=== PATIENT | female | born 1990 | race Caucasian/White ===

== ENCOUNTER 2017-02-10 20:27 | Emergency (ER) | payer MEDICAID ==
[2017-02-10 20:27] VITALS: BMI 17.6
[2017-02-10 20:50] VITALS: BP 97/63; PULSE 103; RESP 18; TEMP 98.6; O2SAT 100
--- NOTE | 2017-02-10 23:38 | ED PDOC ---
HPI: Abdomen Time Seen by Provider: 02/10/17 22:13 Chief Complaint (Nursing): Abdominal Pain Chief Complaint (Provider): Abdominal Pain History Per: Patient History/Exam Limitations: no limitations Onset/Duration Of Symptoms: Days (x2) Outside of [place] travel?: No Current Symptoms Are (Timing): Still Present Location Of Pain/Discomfort: LLQ (/left flank), Suprapubic Associated Symptoms: Nausea, Vomiting. denies: Fever, Urinary Symptoms Additional Complaint(s): 26 year old female presents to ED with complaints of left flank/suprapubic pain x2 days and has a past medical history of asthma and bipolar disorder. (-) fever or urinary symptoms. (+) vomiting, nausea, and headache. Denied ever experiencing these symptoms previously. Denies taking any medication for pain. PCP: [facility] Abnormal Vaginal Bleeding: No Last Menstral Period: last month Past Medical History Reviewed: Historical Data, Nursing Documentation, Vital Signs Vital Signs: Last Vital Signs Temp 98.6 F 02/10/17 20:45 Pulse 103 H 02/10/17 20:45 Resp 18 02/10/17 20:45 BP 97/63 L 02/10/17 20:45 Pulse Ox 100 02/11/17 02:08 - Medical History PMH: Anxiety, Asthma, Bipolar Disorder, Depression, Fibromyalgia, Schizophrenia , Sleep Apnea Denies: Bronchitis, COPD, Emphysema, Paranoia, Personality Disorder, Pneumonia, Pneumothorax, Depression, Post Traumatic Stress Disorder, Pulmonary Embolism - Surgical History Surgical History: - Family History Family History: States: Unknown Family Hx - Social History Current smoker - smoking cessation education provided: Yes (3 cigarettes a day) - Immunization History Hx Tetanus Toxoid Vaccination: No Hx Influenza Vaccination: No Hx Pneumococcal Vaccination: No - Home Medications Home Medications: Ambulatory Orders Medication Instructions Recorded No Known Home Med 12/05/16 - Allergies Allergies/Adverse Reactions: Allergies Allergy/AdvReac Type Severity Reaction Status Date / Time lamotrigine [From Lamictal] Allergy RASH Verified 02/10/17 20:50 Review of Systems ROS Statement: Except As Marked, All Systems Reviewed And Found Negative Constitutional: Negative for: Fever Gastrointestinal: Positive for: Nausea, Vomiting, Abdominal Pain (Left suprapubic pain) Genitourinary Female: Negative for: Dysuria, Frequency, Incontinence, Hematuria Neurological: Positive for: Headache Physical Exam - Reviewed Nursing Documentation Reviewed: Yes Vital Signs Reviewed: Yes - Physical Exam Appears: Positive for: Non-toxic, No Acute Distress Skin: Positive for: Normal Color, Warm, Dry Eye Exam: Positive for: Normal appearance, EOMI, PERRL Neck: Positive for: Normal, Painless ROM, Supple Cardiovascular/Chest: Negative for: Murmur Respiratory: Negative for: Respiratory Distress Gastrointestinal/Abdominal: Positive for: Soft, Tenderness (left suprapubic/ flank tenderness). Negative for: Mass, Distended, Guarding, Rebound Extremity: Positive for: Normal ROM. Negative for: Deformity Neurologic/Psych: Positive for: Alert, Oriented - Laboratory Results Result Diagrams: 02/10/17 00:37 02/10/17 00:37 - ECG O2 Sat by Pulse Oximetry: 100 (RA) Pulse Ox Interpretation: Normal Medical Decision Making Medical Decision Makin Initial impression: r/o stones, r/o pyelo Initial plan: * Labs * Urine C&s * UA * CT A/P 0028 CT FINDINGS Lower thorax: The bilateral lung bases are clear. ABDOMEN: Liver: The liver is enlarged, and demonstrates fatty infiltration. Gallbladder and bile ducts: No acute finding. No calcified stones. No intra- extrahepatic biliary ductal dilation. Pancreas: Limited evaluation secondary to the lack of intravenous contrast. Spleen: No acute findings. Adrenals: No acute findings. Kidneys and ureters: No obstructing intrarenal stones. No hydronephrosis. The course of the bilateral ureters are obscured by adjacent unopacified bowel loops. PELVIS: Bladder: Bladder wall thickening, possibly due to underdistention. Reproductive: Limited visualization Appendix: The appendix is not definitively visualized, however no pericecal inflammatory changes present to suggest the presence of acute appendicitis. ABDOMEN and PELVIS: Stomach and bowel: A dense umbilical hernia is identified, possibly representing herniated omentum. The bowel loops are normally distended with air, without evidence of obstruction. Peritoneum: Limited evaluation secondary to the lack of intra-abdominal fat. Lymph nodes: Limited evaluation without intravenous contrast. Vasculature: No aortic aneurysm. Bones: No acute fracture. IMPRESSION: Limited evaluation of the abdomen and pelvis, secondary to the lack of intra- abdominal fat and intravenous contrast. No hydronephrosis or intrarenal calculi. Evaluation of the course of the bilateral ureters is limited. Dense umbilical hernia, possibly herniated omentum. Thickening of the bladder wall. Fatty infiltration of an enlarged liver. 0046 Urine negative for infection. 0207 LFTs elevated Potassium borderline Pt tolerated PO Will give potassium in ED. Follow up as outpatient to [facility] for abdominal pain and elevated LFTs. pt instructed to follow up as outpt for hernia Upon re-evaluation, patient is feeling much better and is stable for discharge. Patient is medically stable and ready for discharge. Counseling has been provided and patient is in agreement. Return if symptoms persist or acutely worsen. Scribe Attestation: Documented by Martine Singh acting as a scribe for Cynthia Nichols. MD Moraes Attestation: All medical record entries made by the Scribe were at my direction and personally dictated by me. I have reviewed the chart and agree that the record accurately reflects my personal performance of the history, physical exam, medical decision making, and the department course for this patient. I have also personally directed, reviewed, and agree with the discharge instructions and disposition. Disposition - Clinical Impression Clinical Impression: Abdominal pain, Elevated LFTs - Patient ED Disposition Is Patient to be Admitted: No Counseled Patient/Family Regarding: Studies Performed, Diagnosis, Need For Followup - Disposition Referrals: [facility] [Outside] [facility] [Outside] Disposition Time: 13:00 Condition: IMPROVED Additional Instructions: follow up with your primary doctor in 2 days return to the ED with any worsening or concerning symptoms Instructions: Acute Abdominal Pain (ED)
--- NOTE | 2017-02-11 00:28 | CT ---
EXAM: CT Abdomen and Pelvis Without Intravenous Contrast CLINICAL HISTORY: 26 years old, female; Pain; Abdominal pain; Localized; Left; Prior surgery; Surgery date: 6+ months; Surgery type: ; Additional info: Left flank pain TECHNIQUE: Axial computed tomography images of the abdomen and pelvis without intravenous contrast. This CT exam was performed using one or more of the following dose reduction techniques: automated exposure control, adjustment of the mA and/or kV according to patient size, and/or use of iterative reconstruction technique. Coronal reformatted images were created and reviewed. Examination is markedly limited by the lack of intra-abdominal fat and, in the lack of intravenous contrast. COMPARISON: No relevant prior studies available. FINDINGS: Lower thorax: The bilateral lung bases are clear. ABDOMEN: Liver: The liver is enlarged, and demonstrates fatty infiltration. Gallbladder and bile ducts: No acute finding. No calcified stones. No intra-extrahepatic biliary ductal dilation. Pancreas: Limited evaluation secondary to the lack of intravenous contrast. Spleen: No acute findings. Adrenals: No acute findings. Kidneys and ureters: No obstructing intrarenal stones. No hydronephrosis. The course of the bilateral ureters are obscured by adjacent unopacified bowel loops. PELVIS: Bladder: Bladder wall thickening, possibly due to underdistention. Reproductive: Limited visualization Appendix: The appendix is not definitively visualized, however no pericecal inflammatory changes present to suggest the presence of acute appendicitis. ABDOMEN and PELVIS: Stomach and bowel: A dense umbilical hernia is identified, possibly representing herniated omentum. The bowel loops are normally distended with air, without evidence of obstruction. Peritoneum: Limited evaluation secondary to the lack of intra-abdominal fat. Lymph nodes: Limited evaluation without intravenous contrast. Vasculature: No aortic aneurysm. Bones: No acute fracture. IMPRESSION: Limited evaluation of the abdomen and pelvis, secondary to the lack of intra-abdominal fat and intravenous contrast. No hydronephrosis or intrarenal calculi. Evaluation of the course of the bilateral ureters is limited. Dense umbilical hernia, possibly herniated omentum. Thickening of the bladder wall. Fatty infiltration of an enlarged liver.
[2017-02-11 00:41] LABS: BASO % 0.4 % (0.0-2.0); EOS # 0.1 K/uL (0.0-0.7); EOS % 1.9 % (0.0-4.0); HEMATOCRIT 38.1 % (34.0-47.0); LYMPH # 2.9 K/uL (1.0-4.3); LYMPH % 41.5 % (20.0-40.0); MEAN CORPUSCULAR HEMOGLOBIN 27.8 pg (27.0-31.0); MEAN CORPUSCULAR HGB CONC 32.7 g/dL (33.0-37.0); MEAN PLATELET VOLUME 9.1 fl (7.2-11.7); MONO # 0.7 K/uL (0.0-0.8); MONO % 9.9 % (0.0-10.0); NEUT # 3.2 K/uL (1.8-7.0); NEUT % 46.3 % (50.0-75.0); RED CELL DISTRIBUTION WIDTH 13.1 % (11.5-14.5); WHITE BLOOD COUNT 6.9 K/uL (4.8-10.8)
[2017-02-11 00:48] LABS: RBC URINE 1 /hpf (0-3); URINE BACTERIA RARE (<OCC); URINE BILIRUBIN NEGATIVE (NEGATIVE); URINE BLOOD NEGATIVE (NEGATIVE); URINE COLOR YELLOW (YELLOW); URINE GLUCOSE (UA) NEG (Normal); URINE KETONE NEGATIVE (NEGATIVE); URINE LEUKOCYTE ESTERASE NEG Leu/uL (Negative); URINE PROTEIN NEGATIVE (NEGATIVE); WBC URINE 1 /hpf (0-5)
[2017-02-11 00:50] LABS: ALB/GLOB RATIO 1.2 (1.0-2.1); ALKALINE PHOSPHATASE 118 U/L (38-126); ALT/SGPT 113 U/L (9-52); AST/SGOT 76 U/L (14-36); BILIRUBIN,TOTAL 0.3 mg/dl (0.2-1.3); BLOOD UREA NITROGEN 9 mg/dl (7-17); CALCIUM 9.2 mg/dL (8.4-10.2); CARBON DIOXIDE 26 mmol/L (22-30); CHLORIDE 100 mmol/L (98-107); GFR AFRICAN-AMERICAN > 60; GLUCOSE,RANDOM 80 mg/dL (65-105); POTASSIUM 3.5 MMOL/L (3.6-5.0); SODIUM 136 mmol/l (132-148)
[2017-02-11] MEDS ORDERED: Potassium Chloride 20 mEq ER Tab PO ONE ×2 (02:05→02:15)
== END 2017-02-11 02:16 | disposition home or self-care (01) ==
LOC: H.ER 20:27
DX: R10.9 Unspecified abdominal pain (principal); R79.89 Other specified abnormal findings of blood chemistry

== ENCOUNTER 2017-09-08 23:23 | Emergency (ER) | payer MEDICAID ==
[2017-09-08 23:23] VITALS: BMI 17.6
[2017-09-08 23:35] VITALS: BP 119/79; PULSE 107; RESP 16; TEMP 98.6; O2SAT 99
--- NOTE | 2017-09-09 00:16 | ED PDOC ---
HPI: Abdomen Time Seen by Provider: 09/08/17 23:32 Chief Complaint (Nursing): Abdominal Pain Chief Complaint (Provider): abdominal pain History Per: Patient History/Exam Limitations: no limitations Onset/Duration Of Symptoms: Days (1 week), Waxing/Waning Location Of Pain/Discomfort: RLQ, LLQ, Suprapubic Quality Of Discomfort: "Pain" Additional History Per: Patient Additional Complaint(s): 27 y/o female presents with intermittent diffuse lower abdominal pain x 1 week. Associated nausea, dizziness. Denies fever, vomiting, chest pain, shortness of breath, palpitations, changes in bowel movements, urinary symptoms, vaginal bleeding/discharge. Patient states she got her period twice last month, which is unusual for her as they are usually regular. Last Menstral Period: 08/15/17 Past Medical History Reviewed: Historical Data, Nursing Documentation, Vital Signs Vital Signs: Last Vital Signs Temp 98.6 F 09/08/17 23:27 Pulse 107 H 09/08/17 23:27 Resp 16 09/08/17 23:27 BP 119/79 09/08/17 23:27 Pulse Ox 99 09/09/17 00:17 - Medical History PMH: Anxiety, Asthma, Bipolar Disorder, Depression, Fibromyalgia, Schizophrenia , Sleep Apnea Denies: Bronchitis, COPD, Emphysema, Paranoia, Personality Disorder, Pneumonia, Pneumothorax, Depression, Post Traumatic Stress Disorder, Pulmonary Embolism - Surgical History Surgical History: - Family History Family History: States: Unknown Family Hx - Immunization History Hx Tetanus Toxoid Vaccination: No Hx Influenza Vaccination: No Hx Pneumococcal Vaccination: No - Home Medications Home Medications: Ambulatory Orders Medication Instructions Recorded Naproxen [Naprosyn] 500 mg PO Q12 PRN #20 tablet 09/09/17 - Allergies Allergies/Adverse Reactions: Allergies Allergy/AdvReac Type Severity Reaction Status Date / Time lamotrigine [From Lamictal] Allergy RASH Verified 02/10/17 20:50 Review of Systems ROS Statement: Except As Marked, All Systems Reviewed And Found Negative Genitourinary Female: Positive for: Pelvic Pain Physical Exam - Reviewed Nursing Documentation Reviewed: Yes Vital Signs Reviewed: Yes - Physical Exam Appears: Positive for: Well, Non-toxic, No Acute Distress Head Exam: Positive for: ATRAUMATIC, NORMAL INSPECTION, NORMOCEPHALIC Skin: Positive for: Normal Color Eye Exam: Positive for: Normal appearance Cardiovascular/Chest: Positive for: Regular Rate, Rhythm Respiratory: Positive for: Normal Breath Sounds Gastrointestinal/Abdominal: Positive for: Tenderness (diffuse lower discomfort to palpation) Back: Positive for: Normal Inspection Extremity: Positive for: Normal ROM Neurologic/Psych: Positive for: Alert, Oriented - ECG O2 Sat by Pulse Oximetry: 99 - Progress ED Course And Treament: labs, u/s, urine EXAM: US Pelvis, Transvaginal CLINICAL HISTORY: 27 years old, female; Pain; Pelvic pain TECHNIQUE: Real-time transvaginal pelvic ultrasound (complete) with image documentation. Transvaginal imaging was used for better evaluation of the endometrium and adnexa. COMPARISON: No relevant prior studies available. FINDINGS: Uterus/cervix: Uterus measures 7.3 x 3.1 x 4.3 cm in size. No myometrial mass. Endometrium: 0.9 cm in thickness. Right ovary: 3.3 x 2.1 x 3.7 cm in size. 1.5 x 1.3 x 1.6 cm heterogeneous but predominantly hyperechoic lesion. Small follicles. Normal flow. Left ovary: 2.3 x 1.1 x 2.3 cm in size. No mass. Small follicles. Normal flow. Free fluid: No significant free fluid. Bladder: Empty bladder which cannot be evaluated with this probe. IMPRESSION: 1. RIGHT ovarian lesion, nonspecific. Suggest MRI or short-term sonographic followup. Patient educated on findings, discharged with rx Naproxen. Advised follow up Meter Mechanic 2-3 days. Return to ED for worsening/concerning symptoms. Disposition - Clinical Impression Clinical Impression: Lesion of ovary, Pelvic pain - Patient ED Disposition Is Patient to be Admitted: No Counseled Patient/Family Regarding: Studies Performed, Diagnosis, Need For Followup, Rx Given - Disposition Disposition: Routine/Home Disposition Time: 01:41 Condition: IMPROVED Instructions: Pelvic Pain in Women (ED), Ovarian Cyst (ED) Forms: [employer] (Lao)
--- NOTE | 2017-09-09 00:48 | US ---
EXAM: US Pelvis, Transvaginal CLINICAL HISTORY: 27 years old, female; Pain; Pelvic pain TECHNIQUE: Real-time transvaginal pelvic ultrasound (complete) with image documentation. Transvaginal imaging was used for better evaluation of the endometrium and adnexa. COMPARISON: No relevant prior studies available. FINDINGS: Uterus/cervix: Uterus measures 7.3 x 3.1 x 4.3 cm in size. No myometrial mass. Endometrium: 0.9 cm in thickness. Right ovary: 3.3 x 2.1 x 3.7 cm in size. 1.5 x 1.3 x 1.6 cm heterogeneous but predominantly hyperechoic lesion. Small follicles. Normal flow. Left ovary: 2.3 x 1.1 x 2.3 cm in size. No mass. Small follicles. Normal flow. Free fluid: No significant free fluid. Bladder: Empty bladder which cannot be evaluated with this probe. IMPRESSION: 1. RIGHT ovarian lesion, nonspecific. Suggest MRI or short-term sonographic followup.
[2017-09-09 01:00] LABS: BASO % 0.5 % (0.0-2.0); EOS # 0.1 K/uL (0.0-0.7); EOS % 1.1 % (0.0-4.0); HEMATOCRIT 38.8 % (34.0-47.0); LYMPH # 2.7 K/uL (1.0-4.3); LYMPH % 36.6 % (20.0-40.0); MEAN CELL VOLUME 88.3 fl (81.0-99.0); MEAN CORPUSCULAR HEMOGLOBIN 28.4 pg (27.0-31.0); MEAN CORPUSCULAR HGB CONC 32.2 g/dL (33.0-37.0); MEAN PLATELET VOLUME 9.2 fl (7.2-11.7); MONO # 0.5 K/uL (0.0-0.8); MONO % 7.4 % (0.0-10.0); NEUT # 3.9 K/uL (1.8-7.0); NEUT % 54.4 % (50.0-75.0); RED CELL DISTRIBUTION WIDTH 13.9 % (11.5-14.5); WHITE BLOOD COUNT 7.2 K/uL (4.8-10.8)
[2017-09-09 01:08] LABS: RBC URINE 2 /hpf (0-3); URINE BILIRUBIN NEGATIVE (NEGATIVE); URINE BLOOD NEGATIVE (NEGATIVE); URINE COLOR YELLOW (YELLOW); URINE GLUCOSE (UA) NEG (Normal); URINE KETONE NEGATIVE (NEGATIVE); URINE LEUKOCYTE ESTERASE NEG Leu/uL (Negative); URINE PROTEIN NEGATIVE (NEGATIVE); WBC URINE 1 /hpf (0-5)
[2017-09-09 01:09] LABS: ALB/GLOB RATIO 1.6 (1.0-2.1); ALKALINE PHOSPHATASE 61 U/L (38-126); ALT/SGPT 38 U/L (9-52); AST/SGOT 22 U/L (14-36); BILIRUBIN,TOTAL 0.2 mg/dl (0.2-1.3); BLOOD UREA NITROGEN 11 mg/dl (7-17); CALCIUM 9.1 mg/dL (8.4-10.2); CARBON DIOXIDE 23 mmol/L (22-30); CHLORIDE 106 mmol/L (98-107); GFR AFRICAN-AMERICAN > 60; GLUCOSE,RANDOM 91 mg/dL (65-105); SODIUM 141 mmol/l (132-148); TOTAL PROTEIN 7.1 G/DL (6.3-8.2)
== END 2017-09-09 02:15 | disposition home or self-care (01) ==
LOC: H.ER 23:23
DX: N83.291 Other ovarian cyst, right side (principal); R10.2 Pelvic and perineal pain; F20.9 Schizophrenia, unspecified; F31.9 Bipolar disorder, unspecified; F41.9 Anxiety disorder, unspecified; J45.909 Unspecified asthma, uncomplicated; M79.7 Fibromyalgia

== ENCOUNTER 2018-03-22 16:33 | Emergency (ER) | payer MEDICAID ==
[2018-03-22 16:33] VITALS: BMI 17.6
[2018-03-22 16:40] VITALS: TEMP 98
[2018-03-22] MEDS ORDERED: Sodium Chloride 0.9% 1,000 ML IV STA (16:57)
--- NOTE | 2018-03-22 16:59 | ED PDOC ---
HPI: Chest Pain Time Seen by Provider: 03/22/18 16:45 Chief Complaint (Nursing): Chest Pain Chief Complaint (Provider): chest pain History Per: Patient History/Exam Limitations: no limitations Onset/Duration Of Symptoms: Days (1 hr rush seater) Current Symptoms Are (Timing): Still Present Additional Complaint(s): Pt. with chest pain sternal constant. More on taking a deep breath. No dyspnea , nausea, vomit, diarrhea, weakness, headaches, dizziness, vision changes, neck pain. Cough, mild. No back pain. Is preg 38 wks. No leg pain. No long distance travel. Has had a pneumothorax on the right last year. Past Medical History Reviewed: Nursing Documentation, Vital Signs Vital Signs: Last Vital Signs Temp 98.0 F 03/22/18 16:35 Pulse 83 03/22/18 17:39 Resp 20 03/22/18 17:39 BP 121/66 03/22/18 17:39 Pulse Ox 97 03/22/18 17:22 - Medical History PMH: Anxiety, Asthma, Bipolar Disorder, Depression, Fibromyalgia, Schizophrenia , Sleep Apnea Denies: Bronchitis, COPD, Emphysema, Paranoia, Personality Disorder, Pneumonia, Pneumothorax, Depression, Post Traumatic Stress Disorder, Pulmonary Embolism Other PMH: pneumothorax - Surgical History Surgical History: - Family History Family History: States: Unknown Family Hx - Living Arrangements Living Arrangements: With Family - Social History Alcohol: None Drugs: Denies - Immunization History Hx Tetanus Toxoid Vaccination: No Hx Influenza Vaccination: No Hx Pneumococcal Vaccination: No - Home Medications Home Medications: Ambulatory Orders Medication Instructions Recorded Naproxen [Naprosyn] 500 mg PO Q12 PRN #20 tablet 09/09/17 - Allergies Allergies/Adverse Reactions: Allergies Allergy/AdvReac Type Severity Reaction Status Date / Time lamotrigine [From Lamictal] Allergy RASH Verified 02/10/17 20:50 CHRISTOPHER Risk Score for UA/NSTEMI - CHRISTOPHER Risk Score Age > 64: NO 3 or more CAD Risk Factors: NO Known CAD (Stenosis greater than 50%): NO Aspirin use in past 7 days: NO Severe Angina: NO EKG ST changes greater than 0.5mm: NO Positive Cardiac Marker: NO CHRISTOPHER Score: 0 Risk %: 5% Review of Systems ROS Statement: Except As Marked, All Systems Reviewed And Found Negative Cardiovascular: Positive for: Chest Pain Respiratory: Positive for: Cough, Pleuritic Pain Physical Exam - Reviewed Nursing Documentation Reviewed: Yes Vital Signs Reviewed: Yes - Physical Exam Appears: Positive for: Non-toxic, No Acute Distress Head Exam: Positive for: ATRAUMATIC, NORMAL INSPECTION, NORMOCEPHALIC Skin: Positive for: Normal Color, Warm, DRY Eye Exam: Positive for: EOMI, Normal appearance, PERRL ENT: Positive for: Normal ENT Inspection Neck: Positive for: Normal, Painless ROM Cardiovascular/Chest: Positive for: Regular Rate, Rhythm, Chest Non Tender. Negative for: Edema Respiratory: Positive for: CNT, Normal Breath Sounds Gastrointestinal/Abdominal: Positive for: Normal Exam, Distended (gravid). Negative for: Tenderness Back: Positive for: Normal Inspection. Negative for: L CVA Tenderness, R CVA Tenderness Extremity: Positive for: Normal ROM. Negative for: Tenderness, Pedal Edema Neurologic/Psych: Positive for: Alert, information security specialist II-XII, Oriented. Negative for: Motor/Sensory Deficits - Laboratory Results Result Diagrams: 03/22/18 17:50 03/22/18 17:50 Interpretation Of Abn Labs: no acute - ECG ECG: Positive for: Interpreted By Me, Viewed By Me ECG Rhythm: Positive for: Normal QRS, Normal ST Segment, Sinus Rhythm O2 Sat by Pulse Oximetry: 97 Pulse Ox Interpretation: Normal - Progress ED Course And Treament: 1721: Stable. Pt. aware of risk of radiation to the fetus and cancer in the future. Pt. agrees to ct to evaluate for PE. AAOx3. 1944: Stable. AAOx3. Pain free. Spoke obgyn. Will see pt. in OB ED from here. Disposition - Clinical Impression Clinical Impression: Chest pain - Patient ED Disposition Is Patient to be Admitted: No Counseled Patient/Family Regarding: Studies Performed, Diagnosis, Need For Followup - Disposition Referrals: Little Farias MD [Primary Care Provider] - 03/23/18 Disposition: Other Institution (OB ED) Disposition Time: 19:45 Condition: STABLE Additional Instructions: Return if not better in 3 days. Instructions: Chest Pain Forms: [employer] (Indonesian)
--- NOTE | 2018-03-22 17:32 | RAD ---
HISTORY: Chest pain. COMPARISON: No prior. FINDINGS: LUNGS: No active pulmonary disease. PLEURA: No significant pleural effusion identified, no pneumothorax apparent. CARDIOVASCULAR: Normal. OSSEOUS STRUCTURES: No significant abnormalities. VISUALIZED UPPER ABDOMEN: Normal. OTHER FINDINGS: None. IMPRESSION: No active disease.
[2018-03-22 17:40] VITALS: RESP 20
[2018-03-22 17:55] LABS: BASO % 0.4 % (0.0-2.0); EOS # 0.6 K/uL (0.0-0.7); EOS % 5.6 % (0.0-4.0); HEMOGLOBIN 11.1 g/dL (12.0-16.0); LYMPH # 1.5 K/uL (1.0-4.3); MEAN CELL VOLUME 88.5 fl (81.0-99.0); MEAN CORPUSCULAR HEMOGLOBIN 29.4 pg (27.0-31.0); MEAN CORPUSCULAR HGB CONC 33.3 g/dL (33.0-37.0); MONO # 0.9 K/uL (0.0-0.8); MONO % 7.9 % (0.0-10.0); NEUT # 7.9 K/uL (1.8-7.0); NEUT % 72.1 % (50.0-75.0); RBC 3.79 Mil/uL (3.80-5.20); RED CELL DISTRIBUTION WIDTH 13.2 % (11.5-14.5)
[2018-03-22 18:32] LABS: ALB/GLOB RATIO 1.1 (1.0-2.1); ALBUMIN 3.6 g/dL (3.5-5.0); CALCIUM 8.8 mg/dL (8.4-10.2); GFR AFRICAN-AMERICAN > 60; GFR NON-AFRICAN AMERICAN > 60
[2018-03-22 18:36] LABS: ALT/SGPT 21 U/L (9-52); AST/SGOT 37 U/L (14-36); BLOOD UREA NITROGEN 7 mg/dl (7-17)
[2018-03-22] MEDS ORDERED: Iodixanol 320 MG/ML 100 ML BOTTLE IV ONE (18:41)
[2018-03-22] MEDS ORDERED: Sodium Chloride 0.9% 50 ML IV ONE (18:42)
[2018-03-22] MEDS ORDERED: Bicitra 30 ML UD PO ONE (21:11)
--- NOTE | 2018-03-23 01:43 | OBDCSUM ---
Datetime: 03/22/2018 21:38 Discharged to, Provider: Home Follow up at, Provider: [facility] Disch Instr Activity: Normal activity Disch Instr Diet: Regular Discharge Time: 03/22/2018 21:38 Follow up in weeks, Provider: IN 2 WEEKS FOR SCHEDULED APPT Disch Referrals: None Disch Activity Restrictions: No lifting Discharge Diagnosis Prov Other: Chest pain
--- NOTE | 2018-03-23 01:44 | OBHP ---
Datetime: 03/22/2018 20:45 IP Adm Impression: , intrauterine ; No Active Labor IP Admit Plan: Discharge home Admit Comment, IP Provider: 27 yo F EGA 30.3 based on LMP of 08/21/2017 presented to the ER with chest pain. She reports that CP started 6 hours prior, sternal, sharp, rated 10/10. Aggravated w ith deep inspiration and partially alleviated with rest and pain medication. Associated with dizzines s, vomiting x 2 consisting of food and mucuous, non bloody. She denies recent trauma. ACS r/o in ER and pt was seen and evaluated for NST. Positive: FM; Denies: REN, VB, CTX ROS: +: dizziness, CP, N/V. -: blurred vision, sob, dysuria Care: Dr. John at [facility]. Obhx: 2015 c/s at 37 weeks 2/2 cough and similar episodes of chest pain. Pmhx: Asthma Famhx: DM, HTN, Cancer: brain, liver Surg: c/s in 2014; L knee at age 9, pneumothroax 2014 NKDA Soc: Lives with partner, Denies: smoking, etoh, illicit drugs Rx: PNV General: pleasant, in no acute distress HEENT: normocephalic, PERRLA; AAOx3 No chest tenderness at sternum on palpation Heart: no murmurs, regular rate and rhythm, S1, S2 normal. Lungs: clear to auscultation bilaterally, no wheezing Abdomen: nontender, gravid; tenderness at epigastric area upon palpation CVA: negative Lower extremities: negative for pitting edema 27 yo F IUP 30.3 - seen for ACS in ER - monitoring: reactive -Administered Bicitra 30ml PO x1 Discharge home with labor precautions reviewed with patient Case dw Dr. Mariann Ricks MD PGY1 OB hosptialist on-call. pt seen with PGY1...pt was sent from ER after being evaluted for chest pa in. No OB complaints currently. She feel and looks fine. will discharge home. Acetomenphen PRN q 4h (two tabs)...copies of work up given to pt for her primary OB MAHNDO Pelvic Type - PN: Adequate Extremities - PN: Normal Abdomen - PN: Normal Back - PN: Normal Breast - PN: Not Done Lungs - PN: Normal Heart - PN: Normal Thyroid - PN: Not Done Neurologic - PN: Normal HEENT - PN: Normal General - PN: Normal FHR - Baseline A Provider: 140 Vital Signs Provider: Reviewed; Within Normal Limits IP Chief Complaint: Maternal discomfort NICHD Variability Prov Fetus A: Moderate 6-25bpm NICHD Accel Fetus A IP Provider: [id number] FHR Category Provider Fetus A: Category I NICHD Decel Fetus A IP Provider: None Genitourinary Exam: Normal DTRs - PN: Not Done
[2018-03-23 02:07] VITALS: BP 105/69; PULSE 87; O2SAT 98
--- NOTE | 2018-03-23 10:05 | CT ---
PROCEDURE: CT Chest with contrast (Pulmonary Angiogram) HISTORY: chest pain COMPARISON: None available. TECHNIQUE: Axial computed tomography images were obtained of the chest in the pulmonary arterial phase of enhancement. Coronal and sagittal reformatted images were created and reviewed. Intravenous contrast dose: 90 mls Visipaque 320 Radiation dose: Total exam DLP = 235 mGy-cm. This CT exam was performed using one or more of the following dose reduction techniques: Automated exposure control, adjustment of the mA and/or kV according to patient size, and/or use of iterative reconstruction technique. FINDINGS: PULMONARY ARTERIES: Unremarkable. No pulmonary embolism. AORTA: No acute findings. No thoracic aortic aneurysm. LUNGS: Unremarkable. No nodule, mass or pulmonary consolidation. PLEURAL SPACES: Unremarkable. No effusion or pneuomothorax. HEART: Unremarkable. No cardiomegaly. No significant pericardial effusion. LYMPH NODES: No lymphadenopathy. BONES, CHEST WALL: Unremarkable. No fracture or destructive lesion OTHER FINDINGS: Possible minimal sliding hiatal hernia IMPRESSION: No pulmonary embolus. . No acute cardiopulmonary pathology appreciated Possible minimal slight hiatal hernia Concordant results (preliminary interpretation) provided by [facility] [employer].
--- NOTE | 2018-03-23 16:24 | CARD ---
APPROVED REPORT EKG Measurement Heart [id number] <Conclusion> Normal sinus rhythm with sinus arrhythmia Normal ECG
== END 2018-03-22 20:05 | disposition home or self-care (01) ==
LOC: H.ER 16:33 → SUPCPDRO 16:33 → H.EROB2 16:33
DX: O26.93 Pregnancy related conditions, unspecified, third trimester (principal); R07.9 Chest pain, unspecified; R42 Dizziness and giddiness; O21.0 Mild hyperemesis gravidarum; Z3A.30 30 weeks gestation of pregnancy; J45.909 Unspecified asthma, uncomplicated
CPT/HCPCS: 71045; 71275; 80053; 84484; 85025; 93005; 99284; J7030; Q9967

== ENCOUNTER 2018-04-10 18:03 | Emergency (ER) | payer MEDICAID ==
[2018-04-10 19:32] LABS: SQUAMOUS EPITHIAL < 1 /hpf (0-5); URINE BACTERIA RARE (<OCC); URINE BILIRUBIN NEGATIVE (NEGATIVE); URINE BLOOD NEGATIVE (NEGATIVE); URINE CLARITY SLIGHTY-CLOUDY (Clear); URINE COLOR STRAW (YELLOW); URINE GLUCOSE (UA) NEG (Normal); URINE LEUKOCYTE ESTERASE LARGE Leu/uL (Negative); URINE PROTEIN NEGATIVE (NEGATIVE); URINE UROBILINOGEN 0.2-1.0 mg/dL (0.2-1.0)
--- NOTE | 2018-04-10 19:39 | OBHP ---
Datetime: 04/10/2018 19:17 IP Adm Impression: , intrauterine IP Chief Complaint Other: Vaginal Discharge IP Admit Plan: Observation/Evaluation; Discharge home Admit Comment, IP Provider: 27yo with IUP at 33.1wks presents here today c/o pelvic pressure . She denies vaginal bleeding or leakage of fluid. She reported good movements. Reports some fr equency but no dysuria. Recieves care at [facility] with uncomplicated course. OBHx: P1 by c/s PMHx of Asthma. Allergic to Lamotrigine. ShX: Denies toxic habits. O; Appears confortable in bed Heart : RRR Chest: CTA B/L Abd: Soft, NT, BS- present TOCO - occasional uterine activity FHR - 140s regular with moderate variabilities SVE: FT/20/-3. Thick creamy white cheesy discharge on exam fingers resembling yeast infection. Assessment: IUP at 33wks NST reactive R/O UTI Plan: UA - LE Large, WBC- more than 6 D/C Home F/U with OB clinic within 2 weeks. Macrobid for ITU. Pelvic Type - PN: Adequate Extremities - PN: Normal Abdomen - PN: Normal Back - PN: Normal Lungs - PN: Normal Heart - PN: Normal HEENT - PN: Normal General - PN: Normal FHR - Baseline A Provider: 150s Comments, ACOG Physical Exam: Abd: Soft, NT, BS present Gestation - Est Wks by US: 33.1 EGA AdmitDate IP: 33.1 IP Chief Complaint: Maternal discomfort NICHD Variability Prov Fetus A: Moderate 6-25bpm NICHD Accel Fetus A IP Provider: [id number] FHR Category Provider Fetus A: Category I NICHD Decel Fetus A IP Provider: None Dilatation, Provider: Ft Effacement, Provider: 20 Station, Provider: -3 Genitourinary Exam: Normal
[2018-04-11 02:12] VITALS: BP 112/68; PULSE 115; O2SAT 98
== END 2018-04-10 20:00 | disposition home or self-care (01) ==
LOC: H.EROB2 18:03
DX: O23.43 Unspecified infection of urinary tract in pregnancy, third trimester (principal); Z3A.33 33 weeks gestation of pregnancy

== ENCOUNTER 2018-04-12 16:25 | Emergency (ER) | payer MEDICAID ==
[2018-04-12 17:47] VITALS: BMI 24.7
[2018-04-12 18:26] LABS: SQUAMOUS EPITHIAL < 1 /hpf (0-5); URINE BACTERIA RARE (<OCC); URINE BILIRUBIN NEGATIVE (NEGATIVE); URINE BLOOD NEGATIVE (NEGATIVE); URINE CLARITY SLIGHTY-CLOUDY (Clear); URINE COLOR YELLOW (YELLOW); URINE GLUCOSE (UA) NEG (Normal); URINE LEUKOCYTE ESTERASE MOD Leu/uL (Negative); URINE PROTEIN NEGATIVE (NEGATIVE); URINE UROBILINOGEN 0.2-1.0 mg/dL (0.2-1.0)
--- NOTE | 2018-04-12 20:37 | OBHP ---
Datetime: 04/12/2018 18:00 IP Adm Impression: , intrauterine ; No Active Labor IP Admit Plan: Observation/Evaluation Admit Comment, IP Provider: 27 yo F EGA 33.3 based on LMP of 08/21/2017 presented to the ER with vaginal bleed. Of note, patient was recently evaluated, positive for UTI and planned to start macrobid today. Positive: FM; Denies: LOF, CTX ROS: Denies: dizziness, headache, cp/sob/n/v, dysuria Care: Dr. John at [facility]. Obhx: 2015 c/s at 37 weeks 2/2 cough and episodes of chest pain. Pmhx: Asthma Famhx: DM, HTN, Cancer: brain, liver Surg: c/s in 2014; L knee at age 9, pneumothroax 2014 NKDA Soc: Lives with partner, Denies: smoking, etoh, illicit drugs Rx: PNV General: pleasant, in no acute distress HEENT: normocephalic, PERRLA; AAOx3 Heart: no murmurs, regular rate and rhythm, S1, S2 normal. Lungs: clear to auscultation bilaterally, no wheezing Abdomen: nontender, gravid; tenderness at epigastric area upon palpation CVA: negative Lower extremities: negative for pitting edema 27 yo F IUP 33.3 - monitoring: reactive -UA -Cervical length Case dw Dr. Danis Ricks MD PGY1 ADDENDUM: No active vaginal bleed NST reactive Cervical length 4.2 cm UA: encouraged patient to continue Macrobid as prescribed d/c home with ER precautions and to f/u with PMD case dw Dr. Danis Ricks MD PGY1 Addendum: Patient presents with complaints of vaginal spotting. On sterile speculum exam, cervix long, close d, posterior. No blood, no fluid. Positive candidiasis which patient is already taking medication for . Cervical length measurement 4.22 cm. Urinalysis negative. While under observation, patient without complaints. heart tracing reactive, no contractions on tocometer. Patient discharged home with labor precautions. Patient will follow-up in clinic as early scheduled. [place] Pelvic Type - PN: Adequate Extremities - PN: Normal Abdomen - PN: Normal Back - PN: Normal Breast - PN: Normal Lungs - PN: Normal Heart - PN: Normal Thyroid - PN: Normal Neurologic - PN: Normal HEENT - PN: Normal General - PN: Normal FHR - Baseline A Provider: 130 Pool Provider: Negative EGA AdmitDate IP: 33.3 Vital Signs Provider: Reviewed; Within Normal Limits IP Chief Complaint: Vaginal bleeding NICHD Variability Prov Fetus A: Moderate 6-25bpm NICHD Accel Fetus A IP Provider: [id number] FHR Category Provider Fetus A: Category I NICHD Decel Fetus A IP Provider: None Dilatation, Provider: 0 Genitourinary Exam: Normal DTRs - PN: Normal
--- NOTE | 2018-04-13 00:25 | US ---
EXAM: US Uterus, Limited EXAM DATE/TIME: 04/12/2018 5:48 PM CLINICAL HISTORY: 27 years old, female; Pain; Other: Pressure; Gestational age, 33 weeks by history, LMP: 08/21/17; ; Additional info: Only cervical length TECHNIQUE: Real-time ultrasound of the maternal uterus (limited) with image documentation. COMPARISON: There are no prior studies for comparison. FINDINGS: Cervix: Cervix is closed. The cervix measures approximately 4.2 cm in length. IMPRESSION: 4.2 cm closed cervix
[2018-04-15 00:09] VITALS: PULSE 101; TEMP 98.2; O2SAT 99
== END 2018-04-12 18:55 | disposition home or self-care (01) ==
LOC: H.EROB2 16:25 → H.EROB 04-14 16:25
DX: O26.853 Spotting complicating pregnancy, third trimester (principal); O47.03 False labor before 37 completed weeks of gestation, third trimester; Z3A.33 33 weeks gestation of pregnancy; O23.43 Unspecified infection of urinary tract in pregnancy, third trimester